=== PATIENT | male | born 1990 | race Caucasian/White ===

== ENCOUNTER 2017-05-07 19:12 | Inpatient (IN) | payer OTHER, BC ==
[~2017-05-07] VITALS: Ht 177.8 cm; Wt 73.9 kg
--- NOTE | 2017-05-07 20:30 | NUR ---
Intake Assessment Assessment done at intake office. Patient is alert & oriented x4. Pt is ambulatory with a steady gait. Speech is clear and audible. Pt appears slightly anxious and is cooperative during interviews. Vitals noted B/P 116/75, W[place] 91, RR 16, Temp 96.3, O2Sat 96%. Pt is here for Heroin & Meth dependence. Pt denies any medical history. No seizure history noted. Pt denies any food and drug allergies. Pt did not bring any home medications. Explained to pt unit protocols. Pt verbalized understanding.
--- NOTE | 2017-05-07 20:40 | NUR ---
ADMISSION NOTE: Patient is a 27 y.o male admitted at [facility] Unit at approximately 2040 pm of 05/07/17 for medically supervised withdrawal from Opiate. Body search done and skin check performed in Room 308, no contraband found. Pt noted with scabs all over his face, & both lower extremities from skin picking. No open skin noted. Pt is 5'10" tall and weighs 163 lbs in a standing scale. Pt is cooperative during assessment. Patient is oriented to floor unit and room. Patient follows a regular diet at home with no known food and drug allergies. Pt wishes to be full Code. Patient is alert & oriented x4, ambulatory with a steady gait. Speech is clear and audible. Patient appears anxious but cooperative during interview. No shortness of breath noted. Respiration even & unlabored. Abdomen soft & non-distended. Bowel sounds active in all four quadrants. No nausea/vomiting noted. Patient presented with complains of 6/10 body aches, runny nose, sweating, restlessness & anxiety. Bilateral hand tremors noted. CIWA 10 noted. Vitals upon admission: B/P 116/75, [place] 91, Temp 96.3, RR 16, O2Sat 96%. Patient denies any medical history. No seizure history noted Pt denies thoughts of suicide in the past. Pt currently denies SI/HI. Pt was able to provide urine sample for drug screen upon admission and is voiding clear yellow urine with no problems. Substance use: 1. Heroin- Pt started using heroin IV when he was 19 years old. Pt uses 0.5-1.0 gram daily for 2 weeks. Pt last use was 0.25gm of heroin at 06.30am today 05/07/17. 2. Methampetamine- Pt started using Meth Iv when he was 21 years old. Pt uses 1.0-1.5 gram daily for 2 weeks. Pt last use was 1.5 gram of heroin yesterday 05/06/17. 3. Xanax- Pt denies dependence on Xanax and reported to be using it on an intermittent non-daily basis. Last use was 0.5mg yesterday 05/06/17 . 4. Marijuana- Pt denies dependence on Marijuana and reported to be using it occasionally. Last smoked "a few hits" yesterday 05/06/17 Treatment History: -[facility] in [place] for 11 days (March 2017) -[facility] in [place], [place] for 13 days (2011) -[facility] in [place] (2013) Patient denies being hospitalized in the last 30 days. Patient reports his longest period of sobriety was for 11 months from [id number]. Patient reports symptoms when he does not use as tremors, chills, sweating, cough, restless legs, & nausea. Patient smokes 20 cigarettes daily. Patient refused pneumonia vaccines, educated patient risk & benefits but still refused. Patient does not have a PCP. Urine drug screen came back positive for Cannabinoids, Benzodiazepines, Opiates & Methampethamine. Fall & Seizure precautions are in place. All needs attended & met. Safety precautions are in place. Bed locked in lowest position. Both side rails padded & up. Call light within pt's reach. Dr. Marie seen pt. at intake. Awaiting for admission order. Will continue to monitor patient.
[2017-05-07 20:58] LABS: *AMPHETAMINE, URINE POSITIVE (NEGATIVE); *BARBITURATE, URINE NEGATIVE (NEGATIVE); *CANNABINOID, URINE POSITIVE (NEGATIVE); *COCCAINE, URINE NEGATIVE (NEGATIVE); *OPIATE, URINE POSITIVE (NEGATIVE); *PHENCYCLIDINE SCREEN,URINE NEGATIVE (NEGATIVE)
[2017-05-07] MEDS ORDERED: CLONIDINE HCL 0.1 MG TABLET PO PRN (21:00)
[2017-05-07] MEDS ORDERED: MIRALAX 17 GM POWD.PACK PO PRN (21:00)
[2017-05-07] MEDS ORDERED: ACETAMINOPHEN 325 MG TABLET PO PRN (21:00)
[2017-05-07] MEDS ORDERED: MAG HYDROX/AL HYDROX/SIMETH 30 ML LIQUID UDC PO PRN (21:00)
[2017-05-07] MEDS ORDERED: MAGNESIUM HYDROXIDE 30 ML LIQUID UDC PO PRN (21:00)
[2017-05-07] MEDS ORDERED: BUPRENORPHINE HCL 2 MG TAB.SUBL SL PRN (21:00)
[2017-05-07] MEDS ORDERED: HYDROXYZINE PAMOATE 25 MG CAPSULE PO PRN (21:00)
[2017-05-07] MEDS ORDERED: diphenhydrAMINE 50 MG CAPSULE PO PRN (21:00)
[2017-05-07] MEDS ORDERED: ONDANSETRON 4 MG/2 ML VIAL IM PRN (21:00)
[2017-05-07] MEDS ORDERED: IBUPROFEN 600 MG TABLET PO PRN (21:00)
[2017-05-07] MEDS ORDERED: DICYCLOMINE HCL 20 MG TABLET PO PRN (21:00)
[2017-05-07] MEDS ORDERED: ONDANSETRON ODT 4 MG TAB.RAPDIS SL PRN (21:00)
[2017-05-07] MEDS ORDERED: LOPERAMIDE HCL 2 MG CAPSULE PO PRN ×2 (21:00)
[2017-05-07 21:33] LABS: BASOPHILS % (AUTO) 0.6 % (0.0-2.0); EOSINOPHILS # (AUTO) 0.4 K/uL (0.0-0.7); EOSINOPHILS % (AUTO) 5.6 % (0.0-7.0); HEMATOCRIT 41.6 % (40-50); HEMOGLOBIN 14.2 G/DL (14.0-18.0); LYMPHOCYTES # (AUTO) 1.6 K/UL (0.8-4.8); LYMPHOCYTES % (AUTO) 19.9 % (20.5-51.5); MEAN CORPUSCULAR HEMOGLOBIN 30.1 UUG (27.0-31.0); MEAN CORPUSCULAR HGB CONC 34 g/dL (32.0-37.0); MEAN CORPUSCULAR VOLUME 88.3 FL (82.0-92.0); MONOCYTES # (AUTO) 1.1 K/UL (0.1-1.30); MONOCYTES % (AUTO) 13.2 % (0.0-11.0); NEUTROPHILS # (AUTO) 4.9 K/UL (1.8-8.9); NEUTROPHILS % (AUTO) 60.7 % (38.5-71.5); PLATELET COUNT (AUTO) 262 K/UL (150-450); RED BLOOD CELL COUNT(AUTO) 4.71 MIL/UL (4.7-6.1)
[2017-05-07 21:40] LABS: ALANINE AMINOTRANSFERASE 184 U/L (16-63); ALKALINE PHOSPHATASE 91 U/L (50-136); ASPARTATE AMINOTRANSFERASE 132 U/L (15-37); BILIRUBIN,TOTAL 1.7 mg/dL (0.2-1.0); CARBON DIOXIDE 31 mmol/L (21-32); CHLORIDE 101 mmol/L (98-107); GLUCOSE 109 mg/dL (74-106); MAGNESIUM 2.2 mg/dL (1.8-2.4); POTASSIUM 3.7 mmol/L (3.5-5.1); TOTAL PROTEIN, SERUM 7.9 g/dL (6.4-8.2); UREA NITROGEN, BLOOD 15 mg/dL (7-18)
[2017-05-07 21:43] LABS: ETHANOL < 3 MG/DL (0-0)
[2017-05-07] MEDS: METHOCARBAMOL 750 MG TABLET PO PRN (21:53)
[2017-05-07] MEDS: GABAPENTIN 300 MG CAPSULE PO SCH (21:53)
--- NOTE | 2017-05-07 21:53 | NUR ---
PRN Robaxin & Ativan x1 Patient presented with complains of 6/10 generalized body aches. PRN Robaxin administered as ordered. Pt also given a one time dose of Ativan 2mg as per MD's order for anxiety. Will continue to monitor patient.
[2017-05-07] MEDS ORDERED: LORAZEPAM 1 MG TABLET PO ONE (22:00)
[2017-05-07] MEDS ORDERED: GABAPENTIN 300 MG CAPSULE ONE (22:02)
[2017-05-07] MEDS ORDERED: LORAZEPAM 1 MG TABLET ONE (22:02)
[2017-05-07] MEDS ORDERED: METHOCARBAMOL 750 MG TABLET ONE (22:02)
--- NOTE | 2017-05-07 22:53 | NUR ---
PRN Reassessment Patient asleep at this time and appears comfortable. No s/s of distress noted. Unable to assess CIWA d/t pt sleeping. Safety measures in place. Will continue to monitor patient.
[2017-05-08] VITALS: BP 105/67
[2017-05-08 04:00] VITALS: BP 117/74
--- NOTE | 2017-05-08 07:16 | NUR ---
End of Shift Note: Patient is a 27 y/o male admitted last night 05/07/17 for Heroin & Meth dependence. Patient denies any medical history. No seizure history noted. Patient is on a regular diet with no known food and drug allergies. Full Code status. Patient is to be started on a 5-day Subutex taper today. Initial COWS is 10. Pt was given PRN Robaxin during my shift. Pt slept for a total of 7 hours. Pt consumed 355ml of fluids. Voided 1x with no bowel movement. All needs attended & met. Safety measures in place. Will endorse pt to day shift nurse.
[2017-05-08] MEDS: MULTIVITAMINS,THERAPEUTIC TABLET PO SCH (08:59)
[2017-05-08] MEDS: GABAPENTIN 300 MG CAPSULE PO SCH ×3 (08:59→21:22)
[2017-05-08] MEDS: BUPRENORPHINE HCL 2 MG TAB.SUBL SL SCH ×3 (09:00→21:22)
[2017-05-08] MEDS ORDERED: TUBERCULIN,PURIF.PROT.DERIV. 5 TU/0.1 ML TEST ID ONE (09:00)
--- NOTE | 2017-05-08 10:41 | NUR ---
START OF SHIFT: Received report from cafe site attendant nurse. Patient is 27 year old male admitted for medically supervised withdrawal from heroin. Patient is full code with NKA. On assessment this AM:COWS: 12. Denies SOB, chest pain. Vitals signs: WNL. Reports tremors, anxiety, restlessness, sweating, body aches. Med compliant with AM meds. Started 5-Day Sutubex taper this AM. Patient has multiple scabs on face, bilateral arms and legs from picking according to patient. Patient also has scabs on bilateral knees but he states not they were not from picking but from having sex. Wound photos taken. Encouraged patient to hydrate with fluids. Patient was encouraged to attend group meetings today. Patient goes out for smoke with escorts. Will continue to monitor patient.
[2017-05-08 12:00] VITALS: BP 111/56
[2017-05-08 16:00] VITALS: BP 126/76
[2017-05-08] MEDS: NEOMY/BACITRAC/POLYMI OINT 28.35 GM TUBE TOP SCH (17:50)
--- NOTE | 2017-05-08 19:00 | NUR ---
END OF SHIFT Patient is 27 year old male admitted for medically supervised withdrawal from heroin. Patient is full code with NKA. Patient started his 5-Day Sutubex taper with COW 12. Most recent COWS: 5. Patient reports anxiety, restless legs, tremors and bodyaches. Patient has multiple scabs on face, bilateral arms and legs, R buttock and bilateral knees. Photos taken. Patient received antibiotic ointment for his wounds as ordered. Instructed patient not to pick his wound to prevent infections. Compliant with routine meds during this shift. Patient tolerating meals without n/v. night bakerdate night caregiver will continue to monitor patient.
--- NOTE | 2017-05-08 19:15 | NUR ---
Start of Shift Note: Patient is a 27 y/o male admitted last night 05/07/17 for Heroin & Meth dependence. Patient denies any medical history. No seizure history noted. Patient is on a regular diet with no known food and drug allergies. Full Code status. Patient started on a 5-day Subutex taper and tolerating well. Last COWS is 5. No PRN medications given during day shift. Patient is alert & oriented x4. No shortness of breath noted. Respiration even & unlabored. Abdomen soft & non-distended. No nausea/vomiting noted. Patient complaining of 4/10 generalized body aches. Hand tremors felt. Patient denies SI/HI. Safety precautions are in place. Bed locked in lowest position. Both side rails up. Call light within pt's reach. Will continue to monitor patient.
[2017-05-08 20:00] VITALS: BP 120/75
[2017-05-08] MEDS ORDERED: MAGNESIUM OXIDE 400 MG TABLET PO ONE (21:00)
[2017-05-08] MEDS: METHOCARBAMOL 750 MG TABLET PO PRN (21:22)
--- NOTE | 2017-05-08 21:22 | NUR ---
PRN Robaxin Patient complaining of 4/10 generalized body aches. PRN Robaxin administered as ordered. Will continue to monitor for effectiveness of medication.
--- NOTE | 2017-05-08 22:22 | NUR ---
PRN Reassessment Pt verbalized relief from body aches. Pt denies pain/discomfort at this time. Patient lying in bed and appears comfortable. safety measures in place. Will continue to monitor patient.
[2017-05-09] VITALS: BP 105/60
[2017-05-09 04:00] VITALS: BP 107/67
[2017-05-09 05:06] LABS: HEPATITIS B SURFACE AG Negative (Negative)
--- NOTE | 2017-05-09 07:28 | NUR ---
End of Shift Note: Pt had an uneventful night. Pt continues on a 5-day Subutex taper and tolerating well. Pt reported that medication is effective in decreasing his withdrawal symptoms. Pt remained stable and vitals remains WNL. PRN Robaxin given and was effective. Pt remained compliant with medications and treatment plan. Last COWS is 3. Pt still asleep at this time with no s/s of distress noted. Pt was able to sleep for a total of 8 hours. Consumed 1000 ml of fluids. Voided 1x with 1x bowel movement. All needs attended met. Safety measures in place. Will endorse pt to day shift nurse.
[2017-05-09 08:01] VITALS: BP 105/58
[2017-05-09] MEDS: METHOCARBAMOL 750 MG TABLET PO PRN (08:07)
[2017-05-09] MEDS: GABAPENTIN 300 MG CAPSULE PO SCH ×3 (08:07→21:19)
[2017-05-09] MEDS: NEOMY/BACITRAC/POLYMI OINT 28.35 GM TUBE TOP SCH ×2 (08:08→17:27)
[2017-05-09] MEDS: MULTIVITAMINS,THERAPEUTIC TABLET PO SCH (08:08)
--- NOTE | 2017-05-09 08:08 | NUR ---
PRN ROBAXIN AND IBUPROFEN Patient complained of body aches especially back, 04/05. PRN robaxin and ibuprofen given. Will continue to monitor patient.
--- NOTE | 2017-05-09 08:20 | NUR ---
START OF SHIFT Received report from night shift supervisor nurse. Patient is 27 year old male admitted for medically supervised withdrawal from heroin. Patient is full code with NKA. On assessment this AM:COWS: 7. Denies SOB, chest pain. Vitals signs: 105/58, HR 60, RR18, 99% 02 sat RA, T 98,2, 0/10 pain. Reports mild tremors,mild anxiety, restless legs, and body aches. Med compliant with AM meds. On day 2 of 5-Day Sutubex taper. Patient has multiple scabs on face, bilateral arms and legs, R buttock and bilateral knees. Patient reports that R 2nd knucle has increased swelling and pain radiating to the anterior aspect of the hand. On assessment, scab noted with redness and swelling, antibiotic ointment applied as ordered. Will notify MD as patient states he used needles on his R hand. Encouraged patient to hydrate with fluids. Patient was encouraged to attend group meetingstoday. Patient goes out for smoke with escorts. Will continue to monitor patient.
[2017-05-09] MEDS ORDERED: BUPRENORPHINE HCL 2 MG TAB.SUBL SL SCH (09:00)
--- NOTE | 2017-05-09 09:08 | NUR ---
REASSESSMENT PRN ROBAXIN AND IBUPROFEN Patient reports pain decreased to 3/10.
[2017-05-09] MEDS: SULFAMETH/TRIMETH 800/160 MG TABLET PO SCH ×2 (11:45→21:19)
[2017-05-09] MEDS: LACTOBACILLUS RHAMNOSUS GG 1 EACH CAPSULE PO SCH ×2 (11:45→21:19)
[2017-05-09 12:00] VITALS: BP 121/65
[2017-05-09] MEDS: DIVALPROEX 250 MG TABLET.DR PO SCH ×2 (13:34→21:19)
[2017-05-09] MEDS: BUPRENORPHINE HCL 2 MG TAB.SUBL SL SCH ×2 (14:27→21:19)
[2017-05-09] MEDS: BACLOFEN 10 MG TABLET PO SCH ×2 (14:28→21:19)
--- NOTE | 2017-05-09 14:34 | NUR ---
PRN VISTARIL Patient complains of anxiety. PRN vistaril given. Will continue to monitor patient.
--- NOTE | 2017-05-09 15:34 | NUR ---
REASSESSMENT VISTARIL Patient reports decreased anxiety.
[2017-05-09 16:00] VITALS: BP 99/59
--- NOTE | 2017-05-09 18:59 | NUR ---
END OF SHIFT Received report from [employer] operations intelligence chief nurse. Patient is 27 year old male admitted for medically supervised withdrawal from heroin. Patient is full code with NKA. On assessment this AM: COWS: 4. Denies SOB, chest pain. Vitals signs: 99/59, HR 59, RR14, 97% RA, 98.8 Temp, 0/10 pain. Recheck after an hour (patient has been asleep: 98/57, HR 59). Reports mild tremors,mild anxiety, restless legs and body aches. On day 2 of 5-Day Sutubex taper. Patient has multiple scabs on face, bilateral arms and legs, R buttock and bilateral knees. Patient seen by MD regarding R 2nd knuckle redness, swelling and pain. Patient received antibiotic ointment ant Bactrim po. Patient received PRN Robaxin, ibuprofen, Vistaril given during this shift. Compliant with routine meds during this shift. Patient tolerating meals without n/v. entry level electricianaoc operations intelligence chief will continue to monitor patient.
--- NOTE | 2017-05-09 19:15 | NUR ---
Start of Shift Note: Patient is a 27 y/o male admitted last night 05/07/17 for Heroin & Meth dependence. Patient denies any medical history. No seizure history noted. Patient is on a regular diet with no known food and drug allergies. Full Code status. Patient started on a 5-day Subutex taper and tolerating well. Last COWS is 4. Pt was given PRN Robaxin, Motrin & Vistaril. Patient is alert & oriented x4. No shortness of breath noted. Respiration even & unlabored. Abdomen soft & non-distended. No nausea/vomiting noted. Patient complaining of chills & 5/10 back aches. Hand tremors felt. Patient denies SI/HI. Safety precautions are in place. Bed locked in lowest position. Both side rails up. Call light within pt's reach. Will continue to monitor patient.
[2017-05-09 20:00] VITALS: BP 113/69
[2017-05-10] VITALS: BP 102/56
[2017-05-10 04:00] VITALS: BP 105/62
--- NOTE | 2017-05-10 06:50 | NUR ---
End of Shift Note: Pt had an uneventful night. Pt continues on a 5-day Subutex taper and tolerating well. Pt reported that medication is effective in decreasing his withdrawal symptoms. Pt remained stable and vitals remains WNL. No PRN medications given during my shift. Pt remained compliant with medications and treatment plan. Last COWS is 4. Pt still asleep at this time with no s/s of distress noted. Pt was able to sleep for a total of 9 hours. Consumed 970 ml of fluids. Voided 3x with no bowel movement. All needs attended met. Safety measures in place. Will endorse pt to day shift nurse.
--- NOTE | 2017-05-10 07:55 | NUR ---
START OF SHIFT Rcvd endorsement from ongoing nurse, client is a 27 y/o admitted for heroin withdrawal, he is placed on 5 day Subutex taper with no ASE, last COWS 4 @ 1999. Client has an uneventful night, he slept 9 hrs. Client is in bed, a/o x4. he presents with depressed mood, flat affect, client appears irritable, skin warm and warm/dry to touch, abdomen soft, nontender, quadrant x 4 active, Bactrim DS PO q12h for left hand skin/soft tissue infection, tolerating well. Triple antibiotic top BID to scattered superficial abrasions on face. Client denies history of withdrawal induced seizures. Client is on universal precautions. NKA, full code, regular diet. Call light within reach. Side rails x 2 up. Will continue to monitor.
[2017-05-10 08:30] VITALS: BP 100/64
--- NOTE | 2017-05-10 09:00 | NUR ---
Zero induration noted on L forearm TB site
[2017-05-10] MEDS: MULTIVITAMINS,THERAPEUTIC TABLET PO SCH (09:28)
[2017-05-10] MEDS: DIVALPROEX 250 MG TABLET.DR PO SCH ×2 (09:28→21:09)
[2017-05-10] MEDS: BACLOFEN 10 MG TABLET PO SCH ×3 (09:28→21:09)
[2017-05-10] MEDS: SULFAMETH/TRIMETH 800/160 MG TABLET PO SCH ×2 (09:28→21:09)
[2017-05-10] MEDS: GABAPENTIN 300 MG CAPSULE PO SCH ×3 (09:28→21:09)
[2017-05-10] MEDS: LACTOBACILLUS RHAMNOSUS GG 1 EACH CAPSULE PO SCH ×2 (09:28→21:08)
[2017-05-10] MEDS: BUPRENORPHINE HCL 2 MG TAB.SUBL SL SCH ×3 (09:29→21:09)
[2017-05-10] MEDS: NEOMY/BACITRAC/POLYMI OINT 28.35 GM TUBE TOP SCH ×2 (09:31→17:24)
[2017-05-10 12:45] VITALS: BP 114/64
[2017-05-10 16:55] VITALS: BP 103/60
--- NOTE | 2017-05-10 18:33 | NUR ---
END OF SHIFT Will endorse client to incoming nurse, client is in group therapy, he continue to present with depressed mood, flat affect, chills, abdominal cramps, restless legs, decreased appetite, and fatigue. He is on 3rd of 5 day taper, tolerating well, last COWS 4 @ 1600. Client is tolerating well PO antibiotic for infection on L hand and topical antibiotic for superficial abrasions on face. Client is fully ambulatory. Client was compliant with 2/3 of group therapy. Adequate PO intake 2834mL, void x 4. Call light within reach. Safety measures rendered and all needs met.
--- NOTE | 2017-05-10 19:30 | NUR ---
START OF SHIFT Patient is a 27 y/o male admitted on 05/07/17 for Heroin & Meth dependence. No seizure history noted. Patient is on a regular diet with no known food and drug allergies. Full Code status.PMH of ADHD,Anxiety and depression. Patient started on a 5-day Subutex taper and tolerating well. Last COWS is 4.Patient denies SI/HI. Safety precautions are in place. Bed locked in lowest position. Both side rails up. Call light within pt's reach. Will continue to monitor patient.
[2017-05-10 20:00] VITALS: BP 123/77
[2017-05-11] VITALS: BP 113/61
[2017-05-11 04:00] VITALS: BP 98/60
--- NOTE | 2017-05-11 06:39 | NUR ---
END OF SHIFT Patient is a 27 y/o male admitted on 05/07/17 for Heroin & Meth dependence. No seizure history noted. Patient is on a regular diet with no known food and drug allergies. Full Code status.PMH of ADHD,Anxiety and depression. Patient started on a 5-day Subutex taper and tolerating well. Last COWS is 2.No PRN meds were given,pt slept 6 hrs,fluid intake was 1,296 mls,voided x 2,BM X 1. .Patient denies SI/HI. Safety precautions are in place. Bed locked in lowest position. Both side rails up. Call light within pt's reach. Will continue to monitor patient.
--- NOTE | 2017-05-11 07:59 | NUR ---
START OF SHIFT Rcvd endorsement from ongoing nurse, client is a 27 y/o admitted for heroin withdrawal, he is placed on 5 day Subutex taper with no ASE, last COWS 2 @ 0400. Client has an uneventful night, he slept 6 hrs. Client is in bed, a/o x4. he presents with anxious mood, flat affect, he reports restless legs, abdominal cramps, and chills. Abdomen soft, nontender, quadrant x 4 active, Bactrim DS PO q12h for left hand skin/soft tissue infection, no ASE. Triple antibiotic top BID to scattered superficial abrasions on face healing well. Client denies history of withdrawal induced seizures. Client is on universal precautions. NKA, full code, regular diet. Call light within reach. Side rails x 2 up. Will continue to monitor.
[2017-05-11 08:01] VITALS: BP 102/64
[2017-05-11] MEDS: LACTOBACILLUS RHAMNOSUS GG 1 EACH CAPSULE PO SCH ×2 (08:53→20:38)
[2017-05-11] MEDS: GABAPENTIN 300 MG CAPSULE PO SCH ×3 (08:53→20:39)
[2017-05-11] MEDS: BACLOFEN 10 MG TABLET PO SCH ×3 (08:53→20:39)
[2017-05-11] MEDS: SULFAMETH/TRIMETH 800/160 MG TABLET PO SCH ×2 (08:53→20:39)
[2017-05-11] MEDS: BUPRENORPHINE HCL 2 MG TAB.SUBL SL SCH ×2 (08:54→20:39)
[2017-05-11] MEDS: DIVALPROEX 250 MG TABLET.DR PO SCH ×2 (08:54→20:39)
[2017-05-11] MEDS: NEOMY/BACITRAC/POLYMI OINT 28.35 GM TUBE TOP SCH ×2 (08:54→16:21)
[2017-05-11] MEDS: MULTIVITAMINS,THERAPEUTIC TABLET PO SCH (08:54)
[2017-05-11 12:55] VITALS: BP 121/65
[2017-05-11 16:55] VITALS: BP 109/67
--- NOTE | 2017-05-11 18:50 | NUR ---
END OF SHIFT Will endorse client to incoming nurse, client is in room, he continue to present with depressed mood, flat affect, chills, abdominal cramps, restless legs. He is on 4rd of 5 day taper, tolerating well, last COWS 3 @ 1700. Client is tolerating well PO antibiotic for infection on L hand and topical antibiotic for superficial abrasions on face. Client is fully ambulatory. Client was compliant with 2/3 of group therapy. Adequate PO intake 2100mL, void x 4, stool x 1. Call light within reach. Safety measures rendered and all needs met.
[2017-05-11 20:00] VITALS: BP 130/74
--- NOTE | 2017-05-11 20:00 | NUR ---
START OF SHIFT NOTE RECEIVED REPORT FROM DAY SHIFT NURSE. PATIENT IS A 27 YEAR OLD MALE, ADMITTED FOR OPIATE DEPENDENCE. PATIENT IS ON 4TH DAY OF HIS 5 DAY ATIVAN TAPER. PATIENT HAS SCABS ON FACE AND BOTH LOWER EXTREMITIES . PATIENT IS ON ANTIBIOTIC. PATIENT DID NOT REQUIRE ANY PRN MEDICATION. LAST COWS 3 . PATIENT ALERT AND ORIENTED X 4. RESPIRATION EVEN AND UNLABORED. RESPIRATION EVEN AND UNLABORED. PATIENT REPORTS ANXIETY, SWEATING AND RESTLESSNESS. DENIES ANY PAIN AT THIS TIME. NO N/V. SAFETY MEASURES IN PLACE. CALL LIGHT IN REACH. WILL CONTINUE TO MONITOR.
[2017-05-12] VITALS: BP 119/69
--- NOTE | 2017-05-12 04:00 | NUR ---
COWS/VS PATIENT ASLEEP AT THIS TIME. COWS UNABLE TO ASSESS. RESPIRATION EVEN AND UNLABORED. RR 15. NO S/S OF DISTRESS. SAFETY MEASURES IN PLACE. CALL LIGHT IN REACH. WILL CONTINUE TO MONITOR.
--- NOTE | 2017-05-12 07:15 | NUR ---
END OF SHIFT NOTE MONITORED PATIENT THROUGHOUT SHIFT. PATIENT HAD UNEVENTFUL NIGHT. PATIENT IS ON 5 DAY ATIVAN TAPER, TOLERATED WELL. NO ADVERSE REACTION. PATIENT CONTINUE ON ANTIBIOTIC WITH NO ADVERSE REACTION. ENCOURAGE FLUIDS. PATIENT COMPLIANT WITH MEDICATION AND TREATMENT PLAN. PATIENT DID NOT REQUIRE ANY PRN MEDICATION. PATIENT REMAIN ALERT AND ORIENTED X 4. RESPIRATION EVEN AND UNLABORED. SAFETY MEASURES IN PLACE. CALL LIGHT IN REACH. WILL CONTINUE TO MONITOR.SLEPT 8 HOURS. FLUID INTAKE 855 ML. VOIDED X 3. NO BM . LAST COWS 2 .
[2017-05-12 07:18] LABS: BILIRUBIN,DIRECT 0.1 mg/dL (0.0-0.2); BILIRUBIN,TOTAL 0.3 mg/dL (0.2-1.0); TOTAL PROTEIN, SERUM 7.4 g/dL (6.4-8.2)
--- NOTE | 2017-05-12 08:00 | NUR ---
START OF SHIFT Rcvd endorsement from ongoing nurse, client is a 27 y/o admitted for heroin withdrawal, he is on last of 5 day Subutex taper with no ASE, last COWS 2 @ 2400. Client has an uneventful night, he slept 8 hrs. Client is in bed, a/o x4. he presents with anxious mood, flat affect, client reports abdominal cramps and restless legs. Client with skin warm/dry to touch, abdomen soft, nontender, quadrant x 4 active, He continues on PO and Topical antibiotic therapy; Bactrim DS PO q12h for left hand skin/soft tissue infection, tolerating well. Triple antibiotic top BID to scattered superficial abrasions on face,slowly healing. Client denies history of withdrawal induced seizures. Client is on universal precautions. NKA, full code, regular diet. Call light within reach. Side rails x 2 up. Will continue to monitor.
--- NOTE | 2017-05-12 08:26 | NUR ---
MD Notification Dr. Wolfe notified of lab values AST 79 ALT 153 NNO at this time.
[2017-05-12 08:28] VITALS: BP 110/61
[2017-05-12] MEDS: SULFAMETH/TRIMETH 800/160 MG TABLET PO SCH ×2 (08:53→21:41)
[2017-05-12] MEDS: GABAPENTIN 300 MG CAPSULE PO SCH ×3 (08:54→21:40)
[2017-05-12] MEDS: NEOMY/BACITRAC/POLYMI OINT 28.35 GM TUBE TOP SCH ×2 (08:54→17:00)
[2017-05-12] MEDS: MULTIVITAMINS,THERAPEUTIC TABLET PO SCH (08:54)
[2017-05-12] MEDS: DIVALPROEX 250 MG TABLET.DR PO SCH ×2 (08:54→21:41)
[2017-05-12] MEDS: BACLOFEN 10 MG TABLET PO SCH ×3 (08:54→21:41)
[2017-05-12] MEDS: LACTOBACILLUS RHAMNOSUS GG 1 EACH CAPSULE PO SCH ×2 (08:54→21:40)
[2017-05-12] MEDS ORDERED: BUPRENORPHINE HCL 2 MG TAB.SUBL SL SCH (09:00)
--- NOTE | 2017-05-12 11:00 | NUR ---
MD Notification Dr. Marie notified of lab values AST 79 ALT 153 NNO at this time.
[2017-05-12 12:55] VITALS: BP 104/57
[2017-05-12 15:39] LABS: *AMPHETAMINE, URINE NEGATIVE (NEGATIVE); *BARBITURATE, URINE NEGATIVE (NEGATIVE); *CANNABINOID, URINE NEGATIVE (NEGATIVE); *COCCAINE, URINE NEGATIVE (NEGATIVE); *OPIATE, URINE NEGATIVE (NEGATIVE); *PHENCYCLIDINE SCREEN,URINE NEGATIVE (NEGATIVE)
[2017-05-12] MEDS ORDERED: GABA-534 PO (16:44)
[2017-05-12] MEDS ORDERED: DIPH50CA37 PO (16:44)
[2017-05-12] MEDS ORDERED: BACL10TA PO (16:44)
[2017-05-12] MEDS ORDERED: IBUP-1955 PO (16:44)
[2017-05-12] MEDS ORDERED: DIVA250T4 PO (16:44)
[2017-05-12] MEDS ORDERED: DICY20TA28 PO (16:44)
[2017-05-12] MEDS ORDERED: HYDR-3895 PO (16:44)
[2017-05-12 16:55] VITALS: BP 106/64
--- NOTE | 2017-05-12 18:52 | NUR ---
END OF SHIFT Will endorsed client to incoming nurse, client completed continues on first of 5 day Subutex taper, tolerated well with no ASE. Client had an uneventful day, he is compliant with 2/3 of group therapy. He is schedule for discharge tomorrow to [facility]. Urine drug screen collected and noted negative. PRN Robaxin for generalized body aches, effective. Client with non-productive cough, bilateral lungs Last COWS 3 @ 1600. Client continues to present with depressed mood, flat affect,he reports stomach cramps, fatigue and restless legs. Adequate PO intake 2937mL, void x 3. Call light within reach. Safety measures rendered and all needs met.
[2017-05-12 20:00] VITALS: BP 111/63
--- NOTE | 2017-05-12 20:00 | NUR ---
START OF SHIFT NOTE RECEIVED REPORT FROM DAY SHIFT NURSE. PATIENT COMPLETED 5 DAY SUBUTEX TAPER , TOLERATED WELL. NO ADVERSE REACTION. PATIENT IS MEDICALLY DISCHARGED TOMORROW. PATIENT REMAIN STABLE. CONTINUE ON ANTIBIOTIC WITH NO ADVERSE REACTION. PATIENT DID NOT REQUIRE ANY PRN MEDICATION. LAST COWS 3. PATIENT IN ROOM, RESTING. PATIENT STATES HE'S JUST TIRED AND WANTS TO SLEEP. NOTED YAWNING. DENIES ANY PAIN. NO ANXIETY AND NO N/V. ON FALL PRECAUTION. SAFETY MEASURES IN PLACE. CALL LIGHT IN REACH. WILL CONTINUE TO MONITOR.
--- NOTE | 2017-05-13 | NUR ---
COWS/VS PATIENT ASLEEP. COWS UNABLE TO ASSESS. RESPIRATION EVEN AND UNLABORED. RR 15. NO S/S OF DISTRESS. SAFETY MEASURES IN PLACE. CALL LIGHT IN REACH. WILL CONTINUE TO MONITOR.
--- NOTE | 2017-05-13 07:12 | NUR ---
END OF SHIFT NOTE MONITORED PATIENT THROUGHOUT SHIFT. PATIENT COMPLETED 5 DAY SUBUTEX TAPER , TOLERATED WELL. NO ADVERSE REACTION. PATIENT IS MEDICALLY DISCHARGED TODAY. PATIENT COMPLIANT WITH MEDICATIONS AND TREATMENT PLAN. ATTEND GROUPS , EATING AND DRINKING FLUIDS WELL. PATIENT REMAIN STABLE. CONTINUE ON ANTIBIOTIC WITH NO ADVERSE REACTION. PATIENT DID NOT REQUIRE ANY PRN MEDICATION DURING SHIFT.PATIENT REMAIN FREE OF INJURY. ON FALL PRECAUTION. SAFETY MEASURES IN PLACE. CALL LIGHT IN REACH. WILL CONTINUE TO MONITOR. SLEPT 8 HOURS. FLUID INTAKE 590 ML. VOIDED X 1. NO BM. LAST COWS 1 .
--- NOTE | 2017-05-13 07:55 | NUR ---
Start of Shift Pt received from [facility] nurse. Pt is a 27 year old male, admitted on 05/07/17 for opiate detoxification. PMH of anxiety, depression, ADHD and recently diagnosed Hepatitis C. Pt with open wound to left hand. Pt is full code, with NKDA and on a regular diet. Pt is on fall and universal precautions. Completed 5-day Subutex taper and is scheduled for discharge today. Pt did not request any PRNs on NOC shift and slept for 8 hours. Last COWS of 1 recorded at 1999. [employer]ineedle Shirrer encounters pt at nurses station, requesting smoking pass. Pt is A/O x4, calm and cooperative and makes needs known. Pts has no complaints at this time. Bed in low position, wheels locked, side rails up x2, with call light within reach. All safety measures in place. Will continue to monitor, support and encourage according to plan of care.
[2017-05-13 08:52] VITALS: BP 107/61
[2017-05-13] MEDS: DIVALPROEX 250 MG TABLET.DR PO SCH (08:58)
[2017-05-13] MEDS: LACTOBACILLUS RHAMNOSUS GG 1 EACH CAPSULE PO SCH (08:58)
[2017-05-13] MEDS: SULFAMETH/TRIMETH 800/160 MG TABLET PO SCH (08:58)
[2017-05-13] MEDS: NEOMY/BACITRAC/POLYMI OINT 28.35 GM TUBE TOP SCH (08:59)
[2017-05-13] MEDS: GABAPENTIN 300 MG CAPSULE PO SCH (08:59)
[2017-05-13] MEDS: MULTIVITAMINS,THERAPEUTIC TABLET PO SCH (08:59)
[2017-05-13] MEDS: BACLOFEN 10 MG TABLET PO SCH (09:06)
--- NOTE | 2017-05-13 10:33 | NUR ---
Discharge Note Pt discharges per ambulation. Picked up by [facility]. Pt educated on discharge medication, rational, side effects and when to contact MD. Pt provided prescriptions. No home medication to return. All belongings returned. Pt VS WNL, denies HI/SI, A/VH. Pt's last COWS of 1 related to anxiety of beginning new journey. All paperwork completed and provided to pt with copies in chart. MD aware of pt's discharge.
== END 2017-05-13 10:33 | disposition other institution (70) | DRG 895 ==
LOC: SRC 20:12
PROVIDERS: ADMIT Internal Medicine; ATTEND Internal Medicine
PROC: HZ2ZZZZ Detoxification Services for Substance Abuse Treatment (ICD-10-PCS; principal; 2017-05-07)
PROC: HZ31ZZZ Individual Counseling for Substance Abuse Treatment, Behavioral (ICD-10-PCS; 2017-05-09)
PROC: HZ41ZZZ Group Counseling for Substance Abuse Treatment, Behavioral (ICD-10-PCS; 2017-05-11)
DX: F11.23 Opioid dependence with withdrawal (principal); F15.20 Other stimulant dependence, uncomplicated; L03.114 Cellulitis of left upper limb; Z81.8 Family history of other mental and behavioral disorders; Z59.0 Homelessness; F17.210 Nicotine dependence, cigarettes, uncomplicated; F41.9 Anxiety disorder, unspecified; F90.9 Attention-deficit hyperactivity disorder, unspecified type; E83.42 Hypomagnesemia; B19.20 Unspecified viral hepatitis C without hepatic coma; F12.90 Cannabis use, unspecified, uncomplicated; F32.9 Major depressive disorder, single episode, unspecified; S61.432S Puncture wound without foreign body of left hand, sequela; X78.8XXS Intentional self-harm by other sharp object, sequela; F13.10 Sedative, hypnotic or anxiolytic abuse, uncomplicated
CPT/HCPCS: 36415; 70030-TC; 80307; 80324; 80346; 80349; 80361; 83735; 85025; 86580; 86592; 86705; 86803; 87340; 87806; G0480; J3490

== ENCOUNTER 2017-07-17 09:09 | Emergency (ER) | payer BC, OTHER ==
[~2017-07-17] VITALS: Ht 177.8 cm; Wt 86.2 kg
[~2017-07-17 09:09] MED LIST: BACL10TA PO; DICY20TA28 PO; DIPH50CA37 PO; DIVA250T4 PO; GABA-534 PO; HYDR-3895 PO; IBUP-1955 PO
[2017-07-17] MEDS ORDERED: IV NORMAL SALINE 1000 ML BAG IV ONE (09:15)
--- NOTE | 2017-07-17 09:25 | NUR ---
Pt is awake and alert at this time with no acute distress noted.
--- NOTE | 2017-07-17 09:30 | NUR ---
Pt refused I+O cath.
[2017-07-17 09:43] LABS: BASOPHILS % (AUTO) 0.8 % (0.0-2.0); EOSINOPHILS # (AUTO) 0.1 K/uL (0.0-0.7); EOSINOPHILS % (AUTO) 1.2 % (0.0-7.0); HEMATOCRIT 39.8 % (40-50); HEMOGLOBIN 13.5 G/DL (14.0-18.0); LYMPHOCYTES # (AUTO) 1.2 K/UL (0.8-4.8); MEAN CORPUSCULAR HEMOGLOBIN 29.9 UUG (27.0-31.0); MEAN CORPUSCULAR HGB CONC 34 g/dL (32.0-37.0); MEAN CORPUSCULAR VOLUME 88.2 FL (82.0-92.0); MONOCYTES # (AUTO) 0.6 K/UL (0.1-1.30); MONOCYTES % (AUTO) 12.1 % (0.0-11.0); NEUTROPHILS # (AUTO) 3.2 K/UL (1.8-8.9); NEUTROPHILS % (AUTO) 61.9 % (38.5-71.5); PLATELET COUNT (AUTO) 197 K/UL (150-450); RED BLOOD CELL COUNT(AUTO) 4.51 MIL/UL (4.7-6.1); WHITE BLOOD COUNT (AUTO) 5.1 K/UL (4.0-11.2)
--- NOTE | 2017-07-17 09:52 | NUR ---
DANIA arrived to speak with pt.
[2017-07-17 09:53] LABS: ETHANOL < 3 MG/DL (0-0)
[2017-07-17 09:54] LABS: CARBON DIOXIDE 28 mmol/L (21-32); CHLORIDE 98 mmol/L (98-107); CREATININE 1.1 mg/dL (0.6-1.3); GLUCOSE 213 mg/dL (74-106); UREA NITROGEN, BLOOD 10 mg/dL (7-18)
[2017-07-17 10:10] LABS: ALANINE AMINOTRANSFERASE 70 U/L (16-63); ALKALINE PHOSPHATASE 103 U/L (50-136); ASPARTATE AMINOTRANSFERASE 43 U/L (15-37); BILIRUBIN,DIRECT 0.3 mg/dL (0.0-0.2); BILIRUBIN,TOTAL 1.2 mg/dL (0.2-1.0); TOTAL PROTEIN, SERUM 8.3 g/dL (6.4-8.2)
[2017-07-17 10:11] LABS: ACETAMINOPHEN < 2.0 ug/mL (10-30)
[2017-07-17 10:48] LABS: THYROID STIMULATING HORMONE 2.478 mIU/mL (0.358-3.740)
--- NOTE | 2017-07-17 11:20 | NUR ---
Pt awake , alert and oriented x 4. Pt ambulated to restroom with steady gait.
--- NOTE | 2017-07-17 11:45 | NUR ---
IV removed. Catheter intact and site benign. Pressure and 4x4 gauze applied to site. No bleeding noted.
--- NOTE | 2017-07-17 11:50 | NUR ---
Patient discharged to home in stable conditon. Written and verbal after care instructions given. Patient verbalizes understanding of instructions. Pt ambulated out of ER with steady gait.
== END 2017-07-17 11:55 | disposition home or self-care (01) ==
LOC: EDBD → MERGE 09:09 → ER 09:09
DX: T40.1X1A Poisoning by heroin, accidental (unintentional), initial encounter (principal); Y92.89 Other specified places as the place of occurrence of the external cause
CPT/HCPCS: 36415; 71010; 80048; 80076; 84443; 84484; 85025; 85730; 93005; 96360; 99285; A4663; G0480 ×2; G0481; J7030; 70030-TC

== ENCOUNTER 2017-07-17 14:14 | Emergency (ER) | payer OTHER ==
[~2017-07-17] VITALS: Ht 180.3 cm; Wt 86.2 kg
--- NOTE | 2017-07-17 14:50 | NUR ---
MSE COMPLETED, PT MEDICALLY CLEARED,AND OK TO BOK. PT AMBULATED WITH [employer] . PT IN CUSTODY, ACI GIVEN TO [employer] OFFICER. PT WAS GIVEN LUNCH PRIOR TO DISCHARGE.
[2017-07-17 14:52] VITALS: BP 144/88
== END 2017-07-17 14:53 ==
LOC: ER 14:14
DX: Z02.89 Encounter for other administrative examinations (principal); Z59.0 Homelessness
CPT/HCPCS: 99283; A4663

== ENCOUNTER 2017-08-02 11:10 | Inpatient (IN) | payer OTHER ==
[~2017-08-02] VITALS: Ht 180.3 cm; Wt 74.8 kg
--- NOTE | 2017-08-02 13:20 | NUR ---
PRE-ADMISSION NOTE Pt is a 27 yr old male, alert and oriented x4. Pt is observed with increase anxiety m/b unable to sit still. Pt is also observed with facial redness, running nose and teary eyes. Pt is c/o both feet pain 5/10. VS obtained. BP 128/93, P 106, R 18, T 98.2, O2 98%. Pt is stating of w/d from heroin and meth. COWS score was 17. Pt was seen and examined by Dr. Wolfe. Pt is stable to be admitted to the 3rd floor and will continue with assessment.
[2017-08-02 13:43] VITALS: BP 128/93
[2017-08-02 13:46] LABS: *AMPHETAMINE, URINE POSITIVE (NEGATIVE); *BARBITURATE, URINE NEGATIVE (NEGATIVE); *CANNABINOID, URINE POSITIVE (NEGATIVE); *COCCAINE, URINE NEGATIVE (NEGATIVE); *OPIATE, URINE POSITIVE (NEGATIVE); *PHENCYCLIDINE SCREEN,URINE NEGATIVE (NEGATIVE)
--- NOTE | 2017-08-02 14:00 | NUR ---
ADMISSION NOTE Pt is a 27 yr old male, alert and oriented x4. Pt is presenting himself to [facility] for heroin and meth use. Pt is observed with increase anxiety m/b unable to sit still. Pt is also observed with facial redness, running nose and teary eyes. Pt is c/o both feet pain 5/10. VS are WNL. Respirations are even and unlabored. Lung sounds are clear. Body check was complete. Pt is observed with track marsh on bilateral arms and open blistered on left heel. No treatment is needed. COWS score upon admission is 18. Subutex 4mg SL PRN was given as ordered for s/s of w/d. Medication was tank well. Pt was encouraged increase fluid intake for hydration. Pt is full code, regular diet and denies any allergies to food or medication. Pt denies any PCP. Pt states of having x1 seizure in 2013 d/t w/d and surgery on right foot in 2012. Pt denies any other PMH. Pt states of going to [facility] ER on 08/02/17 at 0100 for foot pain and detox. Pt was discharged at 0800 to [facility]. Pt states, "I want to stop screwing up my life". Pt denies any SI/HI. SUBSTANCE HX: 1. Heroin - Pt states of first using heroin at the age of [age] years old. Pt states of using .5-2g IV daily for the past 2.5 weeks. Pt states last use was on 08/01/17, used .2g IV 2. Meth - Pt states of first using meth at the age of [age] years old. Pt states of using 1g IV daily for 2.5 weeks. Pt states last use was on 08/01/17, used .4g IV. 3. Marijuana - Pt states of first using marijuana at the age of 17 yrs old. Pt states of smoking "one joint occasionally". Last use was on 07/31/17, pt states of smoking "one joint". TREATMENT HX: Pt states of being into 15 treatments but can not recall all treatment center names. Pt was in [facility] from May 07 to May 13 for detox and was then transferred to [facility], per pt, was there for 1 week then went into sober living for 30 days. Pt was then transferred to [facility] for 15 days, then went into [facility] for 8 days, then relapsed and has been using for 2.5 weeks. Pt was seen and examined by Dr. Wolfe in Intake. Pt is on Subutex PRN today on 08/02/17 for s/s of w/d and is to start on 5 day Subutex taper on 08/03/17. Pt was educate on medication regimen and plan of care. Pt was able to verbalize understanding. Pt was oriented around unit and equipment in room. Pt is on fall and seizure precautions. Bed is kept low and locked with side rail up x2. Call light is within reach.
[2017-08-02 14:33] LABS: BASOPHILS # (AUTO) 0.1 K/uL (0.0-8.0); BASOPHILS % (AUTO) 1.6 % (0.0-2.0); EOSINOPHILS # (AUTO) 0.2 K/uL (0.0-0.7); EOSINOPHILS % (AUTO) 2.5 % (0.0-7.0); HEMATOCRIT 40.6 % (40-50); HEMOGLOBIN 13.3 G/DL (14.0-18.0); LYMPHOCYTES % (AUTO) 24.9 % (20.5-51.5); MEAN CORPUSCULAR HEMOGLOBIN 28.9 UUG (27.0-31.0); MEAN CORPUSCULAR HGB CONC 33 g/dL (32.0-37.0); MEAN CORPUSCULAR VOLUME 88.1 FL (82.0-92.0); MONOCYTES # (AUTO) 0.9 K/UL (0.1-1.30); MONOCYTES % (AUTO) 10.9 % (0.0-11.0); NEUTROPHILS # (AUTO) 4.6 K/UL (1.8-8.9); NEUTROPHILS % (AUTO) 60.1 % (38.5-71.5); PLATELET COUNT (AUTO) 315 K/UL (150-450); RED BLOOD CELL COUNT(AUTO) 4.61 MIL/UL (4.7-6.1); WHITE BLOOD COUNT (AUTO) 7.9 K/UL (4.0-11.2)
[2017-08-02 14:38] LABS: ETHANOL < 3 MG/DL (0-0)
[2017-08-02 14:50] LABS: ALANINE AMINOTRANSFERASE 95 U/L (16-63); ALKALINE PHOSPHATASE 78 U/L (50-136); ASPARTATE AMINOTRANSFERASE 75 U/L (15-37); BILIRUBIN,TOTAL 2.6 mg/dL (0.2-1.0); CARBON DIOXIDE 25 mmol/L (21-32); CHLORIDE 101 mmol/L (98-107); GLUCOSE 130 mg/dL (74-106); MAGNESIUM 1.8 mg/dL (1.8-2.4); POTASSIUM 3.3 mmol/L (3.5-5.1); UREA NITROGEN, BLOOD 24 mg/dL (7-18)
--- NOTE | 2017-08-02 15:00 | NUR ---
PRN RE-ASSESSMENT Subutex 4mg SL was effective. COWS score decreased from 18 to 12. Pt is encouraged increase fluid intake for hydration. Will continue to monitor.
[2017-08-02 16:00] VITALS: BP 111/65
--- NOTE | 2017-08-02 16:00 | NUR ---
COMMUNICATION Reported to Dr. Wolfe in regards to pt's potassium level of 3.3. Received new order for K-Dur 40MEQ x1, new order initiated by . Will continue to monitor.
--- NOTE | 2017-08-02 18:55 | NUR ---
END OF SHIFT Pt is a 27 yr old male, AA&Ox4. Pt is a newly admit for Opiate dependence and is to start on 5 day Subutex taper on 08/03/17. Pt received Subutex 4mgSL PRN as 1400 due to COWS score of 18. Medication was effective. Last COWS score was 10 at 1600. Pt continue to be observed with increase anxiety m/b difficulty staying still. Skin is warm and moist to touch. Pt has an opened blister on left heel. Picture is in chart. Pt c/o both feet pain 5/10 but is able to tank pain level. Pt is on fall and seizure precautions. Both side rails are up and padded. Call light is within reach.
--- NOTE | 2017-08-02 19:10 | NUR ---
Start of shift note Received report from day shift nurse. Pt is a 27 yo male, A+Ox4, presenting to [facility] for Opiate/Meth/Marijuana dependence. Pt has NKA, is on Full code status, and on Regular diet. Pt is on Fall and Seizure precautions. Pt has HX of Seizure, Right foot SX, and Left foot blister. Pt is on 5 day Subutex taper to start tomorrow. No s/s of distress noted at this time. Respirations even and unlabored. Will continue to monitor.
[2017-08-02 20:12] VITALS: BP 108/72
[2017-08-03 00:14] VITALS: BP 107/62
[2017-08-03 04:49] VITALS: BP 110/68
--- NOTE | 2017-08-03 06:58 | NUR ---
End of shift note Pt is a 27 yo male, A+Ox4, presenting to [facility] for Opiate/Meth/Marijuana dependence. Pt has NKA, is on Full code status, and on Regular diet. Pt is on Fall and Seizure precautions. Pt has HX of Seizure, Right foot SX, and Left foot blister. Pt is on 5 day Subutex taper to start today. Pt slept for a total of 11 HRS. Last COWS: 3 @0400. No s/s of distress noted at this time. Respirations even and unlabored. Will endorse to day shift nurse.
--- NOTE | 2017-08-03 07:10 | NUR ---
Start of Shift Endorsement received from nightshift nurse. Pt is a 27 y/o male admitted for Heroin and meth dependence. Pt has been placed on a 5 day Subutex taper. Pt is tolerating the detox process AEB CIWA 3 at 0400. Pt reports sleeping 10 hours. PT did not receive any PRN medications during the night. PT reports Hx of seizures, all seizure precautions are in place. VS WNL. Full Code. Pt is in STABLE condition at this time. Remains compliant with medication and diet regimen. All needs have been met, All safety measures in place per hospital policy. Bed in lowest position, side rails up x2, call-light within reach. Will continue to monitor
[2017-08-03 08:00] VITALS: BP 100/61
[2017-08-03 09:06] LABS: HEPATITIS B SURFACE AG Negative (Negative)
[2017-08-03 12:00] VITALS: BP 117/69
[2017-08-03 16:00] VITALS: BP 109/60
--- NOTE | 2017-08-03 19:10 | NUR ---
End of Shift Endorsement given to nightshift nurse. Pt is a 27 y/o male admitted for Heroin and meth dependence. Pt has been placed on a 5 day Subutex taper. Pt is tolerating the detox process AEB CIWA 5 at 1600. Pt did not receive any PRN medications. Educated pt on deep breathing techniques. Intake: . PT did not receive any PRN medications. Intake: 1350ml, Void x3, BM x1. PT reports Hx of seizures, all seizure precautions are in place. VS WNL. Full Code. Pt is in STABLE condition at this time. Remains compliant with medication and diet regimen. All needs have been met, All safety measures in place per hospital policy. Bed in lowest position, side rails up x2, call-light within reach. Will continue to monitor
--- NOTE | 2017-08-03 19:16 | NUR ---
Start of shift note Received report from day shift nurse. Pt is a 27 yo male, A+Ox4, presenting to [facility] for Opiate/Meth/Marijuana dependence. Pt has NKA, is on Full code status, and on Regular diet. Pt is on Fall and Seizure precautions. Pt has HX of Seizure, Right foot SX, and Left foot blister. Pt is on 5 day Subutex taper, tolerated well. No s/s of distress noted at this time. Respirations even and unlabored. Will continue to monitor.
[2017-08-03 20:20] VITALS: BP 111/62
[2017-08-04 00:53] VITALS: BP 109/68
[2017-08-04 04:15] VITALS: BP 112/73
--- NOTE | 2017-08-04 06:56 | NUR ---
End of shift note Pt is a 27 yo male, A+Ox4, presenting to [facility] for Opiate/Meth/Marijuana dependence. Pt has NKA, is on Full code status, and on Regular diet. Pt is on Fall and Seizure precautions. Pt has HX of Seizure, Right foot SX, and Left foot blister. Pt is on 5 day Subutex taper, tolerated well. Pt slept for a total of 9 HRS. Last COWS: 2 @0400. No s/s of distress noted at this time. Respirations even and unlabored. Will endorse to day shift nurse.
[2017-08-04 08:00] VITALS: BP 114/64
--- NOTE | 2017-08-04 08:05 | NUR ---
START OF SHIFT NOTE Received report from night nurse, a 27 year old male admitted for Heroin and meth dependence. Pt cont on a 5 day Subutex taper. Pt reported PMH of rt foot surgery, Hep-C, withdrawal induced seizure x1 in 2013, Lt foot blister. Per endorsement pt did not receive any PRN, last COWS score was 2, slept for 9 hours. Patient received awake, alert and oriented x4, educated regarding plan of care for the day and medication regimen with good verbal understanding. Safety measures in place. call light kept with in reach, will continue to monitor.
[2017-08-04 12:00] VITALS: BP 107/60
[2017-08-04 16:00] VITALS: BP 116/71
--- NOTE | 2017-08-04 19:10 | NUR ---
END OF SHIFT NOTE Pt cont on 5 days Subutex taper. Pt did not receive any PRN during shift. Pt compliant with medication and plan of care. Pt did not attend any group or activity. Encourage pt to attend groups to learn new coping skills, pt verbalized understanding. Encouraged Po fluids as ordered. Pt's last COWS score was 4 at 1600. Vital signs WNL. All needs met. Safety measures in place, call light within reach. Pt endorsed to night nurse in stable condition.
[2017-08-04 20:00] VITALS: BP_SYST 104; BP_SYST 133; BP_DIAS 73; BP_DIAS 92
--- NOTE | 2017-08-04 20:00 | NUR ---
START OF SHIFT NOTE RECEIVED REPORT FROM DAY SHIFT NURSE. PATIENT IS A 27 YEAR OLD MALE, ADMITTED FOR OPIATE DEPENDENCE. PATIENT IS ON 2ND DAY OF HIS 5 DAY SUBUTEX TAPER. PATIENT REPORTS PMH OF RIGHT FOOT SURGERY, HISTORY OF SEIZURE X 1 2013 D/T W/D AND HEP C +. PATIENT DID NOT REQUIRE ANY PRN MEDICATION. LAST COWS 4. RECEIVED PATIENT IN THE ROOM, RESTING. PATIENT REPORTS ANXIETY, SWEATING, RESTLESS LEGS, NO N/V, EATING AND DRINKING WELL. PATIENT DID NOT ATTEND GROUPS AND STATES HE'LL GO TOMORROW. ON FALL/SEIZURE PRECAUTION. SAFETY MEASURES IN PLACE. CALL LIGHT IN REACH. WILL CONTINUE TO MONITOR.
[2017-08-05] VITALS: BP 103/64
--- NOTE | 2017-08-05 | NUR ---
COWS DEFERRED PATIENT SLEEPING. COWS DEFERRED . RESPIRATION EVEN AND UNLABORED. SAFETY MEASURES IN PLACE. CALL LIGHT IN REACH. WILL CONTINUE TO MONITOR
[2017-08-05 04:00] VITALS: BP_SYST 110; BP_SYST 96; BP_DIAS 56; BP_DIAS 58
--- NOTE | 2017-08-05 04:00 | NUR ---
COWS DEFERRED PATIENT SLEEPING. COWS DEFERRED . RESPIRATION EVEN AND UNLABORED. SAFETY MEASURES IN PLACE. CALL LIGHT IN REACH. WILL CONTINUE TO MONITOR
--- NOTE | 2017-08-05 06:59 | NUR ---
END OF SHIFT NOTE PATIENT IS A 27 YEAR OLD MALE, ADMITTED FOR OPIATE DEPENDENCE. CONTINUE ON SUBUTEX TAPER, TOLERATED WELL. NO ADVERSE REACTION . PATIENT REPORTED ANXIETY, SWEATING, RESTLESS LEGS, NO N/V, EATING AND DRINKING WELL. PATIENT DID NOT ATTEND GROUPS AND STATES HELL GO TODAY, CONTINUE TO ENCOURAGE. PATIENT DID NOT REQUIRE ANY PRN MEDICATION. ON FALL/SEIZURE PRECAUTION. SAFETY MEASURES IN PLACE. CALL LIGHT IN REACH. WILL CONTINUE TO MONITOR. SLEPT 6 HOURS. FLUID INTAKE 1,047 ML. VOIDED X 2 . NO BM. LAST COWS 5.
--- NOTE | 2017-08-05 07:38 | NUR ---
START OF SHIFT NOTE Received report from night nurse, a 27 year old male admitted for Heroin and meth dependence. Pt cont on a 5 day Subutex taper. Pt reported PMH of Rt foot surgery, Hep-C, withdrawal induced seizure x1 in 2013, Lt foot blister. Per endorsement pt did not receive any PRN, last COWS score was 5, slept for 6 hours. Patient received awake, alert and oriented x4, educated regarding plan of care for the day and medication regimen with good verbal understanding. Safety measures in place. call light kept with in reach, will continue to monitor.
[2017-08-05 08:00] VITALS: BP 104/64
[2017-08-05 09:27] LABS: BILIRUBIN,DIRECT 0.1 mg/dL (0.0-0.2); BILIRUBIN,TOTAL 0.3 mg/dL (0.2-1.0); CREATININE 0.9 mg/dL (0.6-1.3); POTASSIUM 4.5 mmol/L (3.5-5.1); TOTAL PROTEIN, SERUM 6.9 g/dL (6.4-8.2)
[2017-08-05 12:00] VITALS: BP 110/69
[2017-08-05 16:00] VITALS: BP 122/80
--- NOTE | 2017-08-05 16:10 | NUR ---
Therapist prompted client about group times. Client stated he was too tired to attend today.
[2017-08-05 20:00] VITALS: BP 120/69
--- NOTE | 2017-08-05 20:00 | NUR ---
START OF SHIFT NOTE RECEIVED REPORT FROM DAY SHIFT NURSE. PATIENT IS A 27 YEAR OLD MALE ADMITTED FOR OPIATE DEPENDENCE. CONTINUE ON SUBUTEX TAPER, TOLERATED WELL. PATIENT COMPLIANT WITH MEDICATIONS AND TREATMENT PLAN. PATIENT REPORTS PMH OF RIGHT FOOT SURGERY, SEIZURE X 2013 DUE TO W/D AND HEP C +. PATIENT DID NOT REQUIRE ANY PRN MEDICATION. LAST COWS 4. RECEIVED PATIENT ALERT AND ORIENTED X 4. RESPIRATION EVEN AND UNLABORED. PATIENT JUST ATTENDED GROUPS. PATIENT REPORTS ANXIETY AND SWEATING. NO N/V. DENIES ANY PAIN AT THIS TIME. ON FALL/SEIZURE PRECAUTION. SAFETY MEASURES IN PLACE. CALL LIGHT IN REACH. WILL CONTINUE TO MONITOR.
--- NOTE | 2017-08-06 | NUR ---
COWS DEFERRED PATIENT SLEEPING. COWS DEFERRED. RESPIRATION EVEN AND UNLABORED. SAFETY MEASURES IN PLACE. CALL LIGHT IN REACH. WILL CONTINUE TO MONITOR.
[2017-08-06 01:13] VITALS: BP 98/59
[2017-08-06 04:00] VITALS: BP 101/65
--- NOTE | 2017-08-06 04:00 | NUR ---
COWS DEFERRED PATIENT SLEEPING. COWS DEFERRED. RESPIRATION EVEN AND UNLABORED. SAFETY MEASURES IN PLACE. CALL LIGHT IN REACH. WILL CONTINUE TO MONITOR.
--- NOTE | 2017-08-06 07:21 | NUR ---
END OF SHIFT NOTE PATIENT CONTINUE ON SUBUTEX TAPER FOR OPIATE DEPENDENCE, TOLERATED WELL, NO ADVERSE REACTION. PATIENT COMPLIANT WITH MEDICATIONS AND TREATMENT PLAN. PATIENT IN ROOM MOST OF THE SHIFT. PATIENT ALERT AND ORIENTED X 4. RESPIRATION EVEN AND UNLABORED. PATIENT WAS JUST ATTENDED GROUPS. PATIENT REPORTED ANXIETY AND SWEATING. NO N/V. DENIES ANY PAIN AT THIS TIME. PATIENT DID NOT REQUIRE ANY PRN MEDICATION. ON FALL/SEIZURE PRECAUTION. SAFETY MEASURES IN PLACE. CALL LIGHT IN REACH. WILL CONTINUE TO MONITOR. SLEPT 6 HOURS. FLUID INTAKE 1,250 ML. VOIDED X 3 . BM X 1. LAST COWS 5.
[2017-08-06 08:00] VITALS: BP 112/61
[2017-08-06 12:00] VITALS: BP 126/71
[2017-08-06] MEDS ORDERED: HYDR-3895 PO (13:29)
[2017-08-06] MEDS ORDERED: IBUP-1955 PO (13:29)
[2017-08-06] MEDS ORDERED: DOCU100C36 PO (13:29)
[2017-08-06] MEDS ORDERED: DICY20TA28 PO (13:29)
[2017-08-06] MEDS ORDERED: DIPH50CA37 PO (13:29)
[2017-08-06] MEDS ORDERED: METH-406 PO (13:29)
[2017-08-06] MEDS ORDERED: GABA-534 PO (13:29)
--- NOTE | 2017-08-06 14:09 | NUR ---
Therapist encouraged client to attend groups today to take part in his recovery and not be isolated in his room. Client agreed to attend group.
[2017-08-06 16:00] VITALS: BP 123/77
--- NOTE | 2017-08-06 19:00 | NUR ---
END OF SHIFT NOTE Pt completed his 5 days Subutex taper tolerated well. Pt did not receive any PRN. Pt compliant with medication and plan of care. Pt attend group and activity. Encouraged Po fluids as ordered. Pt's last COWS score was 2, at 1600. Vital signs WNL. Pt scheduled for discharge in AM. All needs met. Safety measures in place, call light within reach. Pt endorsed to night nurse in stable condition.
--- NOTE | 2017-08-06 19:20 | NUR ---
START OF SHIFT Patient is 27-year-old male admitted on 08/02/2017 for Heroin dependence. Patient is positive for Hepatitis C, he has history of one seizure in 2013 related to withdrawal, and he has had surgery on his right foot. Patient is FULL code status, NKA, and on a regular diet. Patient has completed a 5 day Subutex taper, tolerated well. Patient is scheduled for discharge tomorrow. Upon assessment, patient was resting in his room, respirations even and unlabored, no signs of distress noted. Patient has an open blister on his left heel. Patient is on fall and seizure precautions, safety measures in place. Bed is in low position, side rails up x2, call light within reach. Will continue to monitor.
[2017-08-06 20:02] VITALS: BP 114/68
[2017-08-07] VITALS: BP 109/72
--- NOTE | 2017-08-07 | NUR ---
COWS DEFERRED Midnight COWS deferred due to patient being asleep; to be assessed when patient is awake per protocol. Patient's respirations are even and unlabored, no signs of distress noted at this time. Bed in low position, side rails up x2, call light within reach. Will continue to monitor.
--- NOTE | 2017-08-07 04:00 | NUR ---
COWS DEFERRED COWS deferred due to patient being asleep; to assess when patient is awake per protocol. Patient's respirations are even and unlabored, no distress noted at this time. Bed in low position, side rails up x2, call light within reach. Will continue to monitor.
[2017-08-07 04:01] VITALS: BP 102/59
--- NOTE | 2017-08-07 07:20 | NUR ---
315 END OF SHIFT Patient is 27-year-old male admitted on 08/02/2017 for Heroin dependence. Patient is FULL code status, NKA, and on a regular diet. Patient has completed a 5 day Subutex taper, tolerated well. Patient is scheduled for discharge today. Patient has an open blister on his left heel. No PRNs given. Last COWS score 3. Patient slept for a total of 8 hours, intake 1600mL, voided x2, stool x0. Patient is on fall and seizure precautions, safety measures in place. Bed is in low position, side rails up x2, call light within reach. Will endorse to day shift.
--- NOTE | 2017-08-07 07:30 | NUR ---
start of shift note: received pt from night club manager nurse, pt is in stable condition sleeping at this time no s/s of pain or discomfort. pt's last cows 3. pt is set to discharge today. pt is admitted to [facility] for opiate/meth withdrawal/dependence. will assist pt in discharging and continue to monitor pt for any changes
--- NOTE | 2017-08-07 09:30 | NUR ---
discharge note: pt left the unit in stable condition no s/s of pain or discomfort or any withdrawal symptoms. pt teaching administered and pt verbalized understanding. pt will be transferred to the last house via private car
== END 2017-08-07 09:30 | disposition home or self-care (01) | DRG 895 ==
LOC: SRC 12:42
PROVIDERS: ADMIT Internal Medicine; ATTEND Internal Medicine
PROC: HZ2ZZZZ Detoxification Services for Substance Abuse Treatment (ICD-10-PCS; principal; 2017-08-02)
PROC: HZ31ZZZ Individual Counseling for Substance Abuse Treatment, Behavioral (ICD-10-PCS; 2017-08-05)
PROC: HZ41ZZZ Group Counseling for Substance Abuse Treatment, Behavioral (ICD-10-PCS; 2017-08-06)
DX: F11.23 Opioid dependence with withdrawal (principal); E87.3 Alkalosis; F15.23 Other stimulant dependence with withdrawal; F13.21 Sedative, hypnotic or anxiolytic dependence, in remission; E87.6 Hypokalemia; Z91.89 Other specified personal risk factors, not elsewhere classified; Z81.8 Family history of other mental and behavioral disorders; Z59.0 Homelessness; F41.9 Anxiety disorder, unspecified; F12.90 Cannabis use, unspecified, uncomplicated; E86.0 Dehydration; Z86.69 Personal history of other diseases of the nervous system and sense organs; D64.9 Anemia, unspecified; Z59.1 Inadequate housing; B19.20 Unspecified viral hepatitis C without hepatic coma; R73.9 Hyperglycemia, unspecified; F32.9 Major depressive disorder, single episode, unspecified; F17.210 Nicotine dependence, cigarettes, uncomplicated
CPT/HCPCS: 36415; 70030-TC; 80307; 80324; 80349; 80361; 83735; 85025; 86592; 86705; 86803; 87340; 87806; A4663; G0480; Q0163